=== PATIENT | female | born 1935 | race Caucasian/White ===

== ENCOUNTER → 2017-05-03 | Outpatient (CLI) | payer OTHER ==
--- NOTE | ~2017-05-03 | S ---
[facility] [address] [place] [address] SURGICAL PATH RPT PROCEDURE Name: GUADALUPE PASTRANA Room #: REG KUSH Foster.#: [id number] Admission: 05/03/17 Date of : 35 Discharge: Report #: [id number] Path Case #: [id number] PATHOLOGY REPORT COLLECTION DATE: 05/03/2017 RECEIVED DATE: 05/03/2017 SUBMITTING PHYS: Dr. Juan Warren OTHER PHYS: Dr. Lester Rodriguez SPECIMEN(S) RECEIVED: A.Left thyroid nodule * * * * * * * * * * * * FINAL DIAGNOSIS: "Left thyroid nodule," image-guided needle biopsy: - Thyroid tissue with Hurthle cell lesion. (see comment) COMMENT: Sections show needle core biopsy fragments of thyroid. Within a partially sampled fibrous and focally calcified capsule, there are mixed macro and microfollicles with prominent Hurthle cells changes. Focal nuclear atypia with occasional nuclear pseudoinclusions are identified. The findings represent a Hurthle cell lesion with the histologic differential diagnosis including Hurthle cell neoplasm and oncocytic variant of papillary carcinoma. Of note, this is a small portion of a larger lesion and may not be entirely insurance service representative. Clinical and radiographic correlation is required. The case is co-reviewed with Dr. Ann-Marie Galeana. (CLW:; 05/04/2017) PATHOLOGIST: Lily Hayes M.D. REPORT ELECTRONICALLY SIGNED BY: Lily Hayes M.D. DATE/TIME: 05/04/2017 20:42 * * * * * * * * * * * * GROSS PATHOLOGY: The specimen is received in formalin, labeled "Guadalupe Pastrana and left thyroid nodule", are several vujt-nrhok-fyw cores measuring 1.3 x 0.3 x 0.1 cm in aggregate, entirely submitted in A1. (SWS; 05/03/2017) CLINICAL HISTORY: None provided INITIAL CPT CODE(S): [facility] [place] [address] [place] [address] SURGICAL PATH RPT PROCEDURE Name: GUADALUPE PASTRANA Room #: [facility].#: [id number] Admission: 05/03/17 Date of : 35 Discharge: Report #: [id number] Path Case #: [id number] A; [id number] Professional services performed by [facility] at [facility] [address] [place] [address] Technical services performed by [facility] at [address] [place] [address], [place] [address]. [facility] [address] [place] [address] PHONE: [phone] DIRECTOR: Axel Ellington M.D. * * * END OF REPORT * * *
--- NOTE | ~2017-05-03 | CNG ---
[facility] [address] [place] [address] CYTO-NONGYN REPORT PROCEDURE Name: GUADALUPE PASTRANA Room #: REG Amado Foster.#: [id number] Admission: 05/03/17 Date of : 35 Discharge: Report #: [id number] Path Case #: [id number] CYTOPATHOLOGY REPORT COLLECTION DATE: 05/03/2017 RECEIVED DATE: 05/04/2017 SUBMITTING PHYS: Dr. Juan Warren OTHER PHYS: Dr. Lester Rodriguez CLINICAL HISTORY: Multinodular thyroid SPECIMEN(S) RECEIVED: A.Fine needle aspiration,Left thyroid * * * * * * * * * * * * FINAL DIAGNOSIS: A. Thyroid, Left thyroid, Fine needle aspiration: BETHESDA CATEGORY III. ATYPIA OF UNDETERMINED SIGNIFICANCE. Numerous macro and microfollicles, Hurthle cells, dense colloid and macrophages present in a background of blood. COMMENT: The differential diagnosis includes a mixed macro-microfollicular adenomatoid nodule with Hurthle cell changes, Hurthle cell adenoma, as well as an oncocytic variant of papillary thyroid carcinoma. Nature of the sample precludes evaluation for follicular carcinoma or a Hurthle cell carcinoma. Please note, sample represents a minute portion and may not be petroleum products sales representative. Correlate clinically and follow up as indicated. An RNA retain vial is available for any needed molecular analysis. Coreview: Slide A0-[address] Lily Hayes. [id number], needle core biopsy tissue showed similar findings. Please see separate report for details. PATHOLOGIST: Ann-Marie Galeana M.D. REPORT ELECTRONICALLY SIGNED BY: Ann-Marie Galeana M.D. DATE/TIME: 05/05/2017 15:22 * * * * * * * * * * * * GROSS PATHOLOGY: A. Fine needle aspiration,Left thyroid: The specimen is labeled "Trista Pastranaley Jaclyn" and consists of three fixed slides, three air dried slides. Fifteen mL of cloudy pink fluid in fixative from the needle rinse is also submitted and one ThinPrep slide and an alcohol fixed cell block were prepared from this material. (mm 05.04.2017) Also received is the RNARetain vial labeled with (Guadalupe Pastrana) which will be held for molecular studies if needed. [facility] [address] [facility] [place] [address] CYTO-NONGYN REPORT PROCEDURE Name: GUADALUPE PASTRANA Room #: [facility].#: [id number] Admission: 05/03/17 Date of : 35 Discharge: Report #: [id number] Path Case #: [id number] CREDENTIALS SPECIALIST(S): MIYA Soriano[facility]IAC INITIAL CPT CODE(S): A; 23027, 31486 Professional services performed by [facility] at [facility] [address] [place] [address] Technical services performed by [facility] at [address] [place] [address]., [address], [place] [address]. [facility] [address] [place] [address], [address] [place] [address] PHONE: [phone] DIRECTOR: Axel Ellington M.D. * * * END OF REPORT * * *
== END ==
LOC: ULTRA 08:55
DX: E04.1 Nontoxic single thyroid nodule (principal); E03.9 Hypothyroidism, unspecified; Z98.890 Other specified postprocedural states

== ENCOUNTER 2017-05-19 05:19 | Day surgery (SDC) | payer OTHER ==
[2017-05-19] VITALS (8 sets, daily range): BP systolic 130–178; BP diastolic 67–117
[~2017-05-19] VITALS: Ht 167.6 cm; Wt 72.1 kg
--- NOTE | ~2017-05-19 | S ---
[facility] [place] [address] SURGICAL PATH RPT PROCEDURE Name: GUADALUPE PASTRANA [facility] [id number] Admission: 05/19/17 Date of : 35 Discharge: 05/20/17 Report #: [id number] Path Case #: [id number] PATHOLOGY REPORT COLLECTION DATE: 05/19/2017 RECEIVED DATE: 05/19/2017 SUBMITTING PHYS: Dr. Juan Warren OTHER PHYS: Dr. Lester Rodriguez SPECIMEN(S) RECEIVED: A.Left lower thryroid B.Right thyroid lobe * * * * * * * * * * * * FINAL DIAGNOSIS: A. Thyroid, left lower thyroid, thyroid lobectomy: - FOLLICULAR CARCINOMA, MINIMALLY INVASIVE WITH FOCAL ONCOCYTIC FEATURES. - Margins of resection free of malignancy. - Negative for lymphatic invasion or perineural invasion. 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 - Lymph nodes (4), perithyroidal soft tissue, left lower thyroid lobectomy: - Two reactive lymph nodes in perithyroidal soft tissue showing no evidence of malignancy (0/4). - Parathyroid, left lower thyroid lobectomy: - Congested parathyroid gland. - Negative for malignancy. B. Thyroid, right thyroid lobe, lobectomy: - Chronic lymphocytic thyroiditis associated with nodular hyperplasia in the background. - Negative for malignancy. - Parathyroid, right thyroid lobectomy: - Congested parathyroid gland. - Negative for malignancy. SYNOPTIC CANCER STAGING REPORT Thyroid gland SPECIMEN Procedure: Total thyroidectomy TUMOR Histologic Type: Follicular carcinoma, minimally invasive Tumor Size in Centimeters (cm): Greatest dimension in Centimeters (cm): [address] [address] SURGICAL PATH RPT PROCEDURE Name: GUADALUPE PASTRANA [id number] Admission: 05/19/17 Date of : 35 Discharge: 05/20/17 Report #: [id number] Path Case #: [id number] Additional Dimension in Centimers (cm): 0.9 Additional Dimension in Centimeters (cm): 0.9 Tumor Site: Left lobe Tumor Focality: Unifocal Tumor Extent Extrathyroidal Extension: Not identified Accessory Findings Angioinvasion (vascular invasion): Not identified Lymphatic Invasion: Not identified Perineural Invasion: Not identified MARGINS Margins: Uninvolved by carcinoma Distance of Invasive Carcinoma from Closest Margin in Millimeters (mm): Specify in Millimeters (mm): 1 LYMPH NODES Regional Lymph Nodes: Number of Lymph Nodes Involved: None identified Number of Lymph Nodes Examined: Specify number: 4 Specify Leda Levels: Other: perithyroidal soft tissue PATHOLOGIC STAGE CLASSIFICATION (PTNM, AJCC 8TH EDITION) Primary Tumor (pT): For Papillary, Follicular, Poorly Differentiated, Hurthle Cell and Anaplastic Thyroid Carcinoma Primary Tumor (pT): pT1: Tumor size <= 2 cm in greatest dimension, limited to thyroid Regional Lymph Nodes (pN): pN0a: One or more cytologically or histologically confirmed benign lymph nodes ADDITIONAL FINDINGS Additional Pathologic Findings: Adenomatoid nodule(s) or nodular follicular disease (e.g., nodular hyperplasia, goitrous thyroid) Thyroiditis: Chronic lymphocytic thyroiditis Parathyroid gland(s) Present Number of Parathyroid Glands: 2 Location of Parathyroid Gland(s): Other: one on the left and the other on the right Parathyroid Gland Findings: Within normal limits COMMENT: Co-review: Dr. Finesse Case (passenger service representative slides A1 level 9, A2 level 5, and A3 level 5). Findings of this case are discussed with Dr. Juan Warren at 9:15 am on 05/23/17. (IUV:pit; 05/23/2017) PATHOLOGIST: Ann-Marie [place] [address] SURGICAL PATH RPT PROCEDURE Name: GUADALUPE PASTRANA [facility] [id number] Admission: 05/19/17 Date of : 35 Discharge: 05/20/17 Report #: [id number] Path Case #: [id number] REPORT ELECTRONICALLY SIGNED BY: Ann-Marie Galeana M.D. DATE/TIME: 05/23/2017 12:28 * * * * * * * * * * * * GROSS PATHOLOGY: A. Specimen A is received fresh from the OR labeled with the patient's name and "left lower thyroid", consists of an unoriented 2.7 gram lobectomy portion of thyroid gland which measures 3.0 x 2.0 x 1.0 cm. The margin is inked black at this point, the specimen is serially sectioned and it shows a well circumscribed 0.9 x 0.9 x 0.9 cm nodule, as well as a few additional smaller nodules. A passenger service representative section of the larger discrete nodule is submitted for frozen section as FSA1, touch preparation is made of the additional smaller nodules identified in the surrounding parenchyma. The frozen section remnant is submitted for permanence sections as A1. The unfrozen section of the thyroid lobe is submitted entirely in A2 and A3. (IUV:pit; 05/20/2017) B. Received in formalin labeled "Guadalupe Dill, right lobe thyroid" is a 2 g, 2.8 x 2.6 x 0.5 cm portion of red-brown thyroid tissue. The external surface is inked entirely black. The specimen is serially sectioned to reveal a villegas-brown homogeneous cut surface without definitive masses or nodules present. The specimen is submitted entirely in cassette B1-B3. ([facility] [place] [place]; 05/20/2017) FROZEN SECTION DIAGNOSIS: FSA1 and TPA2, left lower thyroid, lobectomy: - 0.9 cm well circumscribed nodule showing mixed macro and micro follicles with Hurthle cell features and focal nuclear abnormalities as well as chronic thyroiditis. - These findings were discussed with Dr. Juan Warren in OR2 at [facility] and a written report is placed in the patient's chart. (IUV:pit; 05/20/2017) Frozen Section performed by Dr. Jayce Galeana at [place] [address], [place] [address] CLINICAL HISTORY: Hurthle cell adenoma thyroid, History of FNA cytology showing a Hurthle cell lesion with nuclear atypia. INITIAL CPT CODE(S): A; 30085, 01048, 17780, 03099 A2 TP; 37321 [facility] [address] [place] [address] SURGICAL PATH RPT PROCEDURE Name: GUADALUPE PASTRANA Room #: [facility].#: [id number] Admission: 05/19/17 Date of : 35 Discharge: 05/20/17 Report #: [id number] Path Case #: [id number] B; [id number], [id number] Professional services performed by [facility] at [facility] [address], [place] [address] Technical services performed by [facility] at [address] [place] [address], [place] [address]. [facility] [address] [place] [address] PHONE: [phone] DIRECTOR: Axel Ellington M.D. * * * END OF REPORT * * *
--- NOTE | ~2017-05-19 | O ---
[facility] [address] [place] [address] OPERATIVE REPORT Name: JESSIE PASTRANARAMAKRISHNA Anaya Room #: 416-P [facility]#: [id number] Admission: 05/19/17 Attend Phys: Juan Warren MD Discharge: Date of : 35 Report #: [id number] THIS REPORT FOR: //name// CC: Lester Warren DATE OF SERVICE: 05/19/2017 SURGEON: Juan Warren MD. 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 POSTOPERATIVE DIAGNOSIS: Hurthle cell follicular neoplasm of thyroid. OPERATION PERFORMED: 1. Total thyroidectomy. 2. Nerve integrity monitoring x 2 hours. INDICATIONS: The patient is an 81-year-old female referred by Dr. Rodriguez for second opinion on a recently diagnosed thyroid mass. Initial fine needle aspiration had been nondiagnostic. She was referred. A second fine needle aspiration was done showing a Hurthle cell follicular neoplasm with nuclear atypia concerning for a follicular cell neoplasm or oncocytic variant of papillary carcinoma. In light of the above, recommendations were made for definitive excision. We discussed lobectomy versus total thyroidectomy, the patient felt that she wanted the entire thyroid removed. DESCRIPTION OF PROCEDURE: The patient was brought to the operating room and placed supine on the operating table. After adequate general anesthesia was achieved via endotracheal intubation with a Xomed nerve integrity monitoring endotracheal tube, shoulder was placed and the neck extended. Planned incision was marked out in a relaxed skin tension line in the neck and injected with 1% Xylocaine with 1:100,000 epinephrine. As a separate part of the procedure, the [employer] nerve integrity monitor was applied to the electrodes from the endotracheal tube. Ground electrodes were placed in the soft tissue overlying the sternum and contralateral shoulder. Electrode resistance and impedance was measured and found to be acceptable. Threshold and stimulus intensity parameters were set and the patient was monitored for the entirety of the case of approximately 2 hours in order to locate and protect the recurrent laryngeal nerve. She was then prepped and draped in a sterile fashion. The procedure began with incision through skin and subcutaneous tissue and [address] [address] OPERATIVE REPORT Name: AMPARO PASTRANA Room #: 416-P [facility]#: [id number] Admission: 05/19/17 Attend Phys: Juan Warren MD Discharge: Date of : 35 Report #: [id number] platysma. Subplatysmal flaps were elevated superiorly and inferiorly. Dissection was made down to the strap muscles. These were divided vertically in the midline and retracted laterally. Dissection began on the patient's left side, the side with the tumor. Beginning superiorly, the superior vessels were sequentially identified, clamped between Ligaclips and divided. Middle thyroid vein was taken down between Ligaclips. The inferior vessels were sequentially identified, clamped between Ligaclips and divided. The isthmus was then elevated off the trachea and taken down with harmonic leslie. The gland was rolled up on to the trachea. Dissection in the tracheoesophageal groove revealed the recurrent nerve. This was tracked superiorly to the cricothyroid joint. The superior parathyroid was attached to the capsule, dissected free on its blood supply and preserved. The inferior parathyroid as well was attached to the capsule. This was just over the inferior thyroid artery, it was also preserved. Hbeert's ligament was then taken down sharply keeping the nerve in direct vision. This lobe was delivered off the field as specimen confirming a follicular cell neoplasm. Final diagnosis deferred to permanent section. Attention was then turned to the right side. Again on this side, the inferior vessels were sequentially identified, clamped between Ligaclips as were the superior vessels. Middle thyroid vein was taken down between Ligaclips. This was rolled up onto the trachea and again dissection in the tracheoesophageal groove revealed the recurrent nerve in its usual anatomic position. This was tracked inferiorly to superiorly. Again, the superior parathyroid was attached to the capsule, dissected and preserved. The inferior parathyroid was just at the cricothyroid joint, also dissected and preserved. Hebert's ligament was taken down sharply keeping an eye on the nerve and this lobe delivered off the field in formalin to pathology. There were no abnormal lymph nodes present. Both nerves were stimulated at the end of the case with the nerve monitor. Hemostasis was assured with bipolar cautery. A 10-Sinhala Aron drain was placed through a separate stab incision, curled into the wound and connected to bulb suction. The strap muscles were then closed vertically in the midline with interrupted 3-0 Vicryl. A 3-0 Vicryl was used to close platysma, 4-0 Vicryl deep dermal sutures were placed and a 5-0 running subcuticular Prolene on skin. Mastisol and strips were applied with an OpSite for dressing. The drain was sutured in place with 2-0 silk and connected to bulb suction. The patient was then discharged back to anesthesia, awake without difficulty, returned to recovery in good condition. Sponge and needle counts correct. There were no complications and the blood loss was about 10 mL. The patient will be watched until awake and stable presuming she does well overnight, she may be discharged in the morning presuming the calciums are normal. Written and verbal discharge instructions and emergency precautions have been given to her family. DISCHARGE MEDICATIONS: Include clindamycin 300 mg t.i.d. for 10 days, hydrocodone/acetaminophen 7.5/325 one to two q.4-6h. p.r.n., Phenergan suppository 25 mg 1 per rectum q.4-6h. p.r.n., Tums 500 mg 2 tablets t.i.d., [facility] [address] [place] [address] OPERATIVE REPORT Name: JESSIE PASTRANARAMAKRISHNA Anaya Room #: 416-P REG [facility].#: [id number] Admission: 05/19/17 Attend Phys: Juan Warren MD Discharge: Date of : 35 Report #: [id number] Synthroid 100 mcg 1 p.o. q. day. She is instructed on light activity and a soft diet. By: 1503 1657 Juan Warren MD /nt
[~2017-05-19 05:19] MED LIST: ASPIRIN325 PO; ATORVASTATIN CA40 MG PO; CARDIZEM CD180 MG PO; CO Q-10100 MG PO; FISH OIL 1,2001 EAC4 PO; OSTEO BI-FLEX1 EAC1 PO; SLEEP AID25 M1 PO; STOOL SOFTENER100 MG PO; SYNTHROID88 MCG PO; TOPROL XL25 MG PO; TYLENOL COLD M1 EACH PO; VITAMIN B-12500 MC5 PO
[2017-05-19] MEDS ORDERED: PROMS25 WY RECTAL (15:12)
[2017-05-19] MEDS ORDERED: CLEOCIN HCL150 MG PO (15:12)
[2017-05-19] MEDS ORDERED: NORCO 7.5-3251 EACH PO (15:13)
[2017-05-19] MEDS ORDERED: TUMS PO (15:13)
[2017-05-19] MEDS ORDERED: SYNTHROID100 MCG PO (15:14)
[2017-05-19 15:41] LABS: ALBUMIN 4.1 g/dL (3.4-5.0); MAGNESIUM 1.8 mg/dL (1.8-2.4)
[2017-05-20 00:05] VITALS: BP 136/66
[2017-05-20 03:30] VITALS: BP 137/68
[2017-05-20 08:00] VITALS: BP 150/70
[2017-05-20 11:01] VITALS: BP 150/70
== END 2017-05-20 11:30 | disposition home or self-care (01) ==
LOC: OR 05:19 → TBA 05:19 → OR 11:29 → 4N 15:57 → OR 16:19
PROVIDERS: Otolaryngology Plastic Surgery within the Head & Neck
DX: C73 Malignant neoplasm of thyroid gland (principal); E06.3 Autoimmune thyroiditis; I10 Essential (primary) hypertension; E78.00 Pure hypercholesterolemia, unspecified; I25.2 Old myocardial infarction; Z85.3 Personal history of malignant neoplasm of breast; Z98.41 Cataract extraction status, right eye; Z98.42 Cataract extraction status, left eye; Z87.891 Personal history of nicotine dependence; Z85.828 Personal history of other malignant neoplasm of skin; Z90.710 Acquired absence of both cervix and uterus; Z98.890 Other specified postprocedural states; Z88.0 Allergy status to penicillin
CPT/HCPCS: 50010; 50101; 50331; 50386; 50417; 52190; 52220; 52225; 52287; 56524; 56526; 56528; 56760; 57006; 62110; 62900; 70005